=== PATIENT | male | born 1980 | race African-American/Black ===

== ENCOUNTER 2017-02-11 15:16 | Emergency (ER) | payer SELFPAY ==
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
== END 2017-02-11 16:45 | disposition home or self-care (01) ==
LOC: ER 15:16
DX: S30.811A Abrasion of abdominal wall, initial encounter (principal); V29.3XXA Motorcycle rider (driver) (passenger) injured in unspecified nontraffic accident, initial encounter; Y92.410 Unspecified street and highway as the place of occurrence of the external cause

== ENCOUNTER 2017-03-12 02:43 | Emergency (ER) | payer SELFPAY | END 2017-03-12 06:10 | disposition home or self-care (01) | DX: J45.909 Unspecified asthma, uncomplicated (principal); E11.9 Type 2 diabetes mellitus without complications ==